=== PATIENT | male | born 2000 | race American Indian/Alaskan Native ===

== ENCOUNTER 2022-03-25 14:25 | Emergency (ER) | payer SELFPAY ==
[2022-03-25] MEDS: ACETAMINOPHEN 325 MG TAB PO ONE (15:08)
--- NOTE | 2022-03-25 15:46 | XRay Report ---
CHEST 2 VIEWS INDICATION / CLINICAL INFORMATION: Cough and fever. COMPARISON: 09/07/21. FINDINGS: SUPPORT DEVICES: None. HEART / MEDIASTINUM: The heart size and pulmonary vasculature are normal. LUNGS / PLEURA: No significant pulmonary or pleural abnormality. No pneumothorax. ADDITIONAL FINDINGS: No significant additional findings. IMPRESSION: No acute abnormality or significant change. No evidence of pneumonia. Signer Name: Jose Escalante MD Signed: 03/25/2022 3:42 PM Workstation Name: [id number]
[2022-03-25 16:15] LABS: Basophils % (Auto) 0.6 % (0.0-1.8); Eosinophils # (Auto) 0.1 K/mm3 (0.0-0.4); Hematocrit 47.3 % (35.5-45.6); Hemoglobin 15.6 gm/dl (11.8-15.2); Lymphocytes # (Auto) 1.1 K/mm3 (1.2-5.4); Lymphocytes % (Auto) 13.6 % (13.4-35.0); Mean Corpuscular HGB Conc 33 % (32-34); Mean Corpuscular Volume 83 fl (84-94); Monocytes # (Auto) 0.9 K/mm3 (0.0-0.8); Monocytes % (Auto) 11.5 % (0.0-7.3); Platelet Count 370 K/mm3 (140-440); Red Blood Count 5.68 M/mm3 (3.65-5.03); Red Cell Distribution Width 15.8 % (13.2-15.2)
[2022-03-25 16:30] LABS: Alanine Aminotransferase 39 units/L (7-56); Albumin 4.7 g/dL (3.9-5); BUN/Creatinine Ratio 6; Blood Urea Nitrogen 5 mg/dL (9-20); Calcium 10.1 mg/dL (8.4-10.2); Hemolysis Index 7
[2022-03-25 23:48] VITALS: BP 129/87
[2022-03-26] MEDS: PENICILLIN G BENZATHINE 1.2 MILLION UNIT/2 ML INJ IM ONE (00:24)
[2022-03-26] MEDS: dexAMETHasone 4 MG/ML VIAL IM ONE (00:24)
--- NOTE | 2022-03-26 00:37 | Emergency Department Report ---
ED ENT HPI - General Chief complaint: Fever Stated complaint: NECK PAIN/HEADACE FEVER Time Seen by Provider: 03/25/22 23:50 Source: patient Mode of arrival: Ambulatory Limitations: No Limitations - History of Present Illness Initial comments: 32-year-old -[place] male is emerged department complaining of a 3-day history of sore throat with odynophagia which has been waxing and waning and worsening fashion over the last 2 days.. Symptoms are worse with eating and drinking. Ports no nausea, no rashes, no abdominal pain, no chest pain MD complaint: sore throat Severity: mild Quality: dull Consistency: constant Improves with: none Worsens with: none Context- Dental: history of dental caries Associated Symptoms: pain with swallowing, sore throat. denies: tinnitus, discharge from ear, rhinorrhea - Related Data Previous Rx's Medication Instructions Recorded Last Taken Type Lidocaine Viscous 2% 5 ml MM Q3H PRN #120 udc 03/26/22 Unknown Rx Allergies Allergy/AdvReac Type Severity Reaction Status Date / Time No Known Allergies Allergy Unverified 03/25/22 14:54 ED Dental HPI - General Chief complaint: Fever Stated complaint: NECK PAIN/HEADACE FEVER Time Seen by Provider: 03/25/22 23:50 Source: patient Mode of arrival: Ambulatory Limitations: No Limitations - Related Data Previous Rx's Medication Instructions Recorded Last Taken Type Lidocaine Viscous 2% 5 ml MM Q3H PRN #120 udc 03/26/22 Unknown Rx Allergies Allergy/AdvReac Type Severity Reaction Status Date / Time No Known Allergies Allergy Unverified 03/25/22 14:54 ED Review of Systems ROS: Stated complaint: NECK PAIN/HEADACE FEVER Other details as noted in HPI ED Past Medical Hx - Past Medical History Previous Medical History?: Yes Hx Asthma: Yes - Surgical History Past Surgical History?: No - Medications Home Medications: Home Medications Medication Instructions Recorded Confirmed Last Taken Type Lidocaine Viscous 2% 5 ml MM Q3H PRN #120 udc 03/26/22 Unknown Rx ED Physical Exam - General Limitations: No Limitations ED Course Vital Signs 03/25/22 03/25/22 03/25/22 14:51 15:08 16:52 Temperature 102.0 F H 99.9 F H Pulse Rate 117 H 117 H Respiratory 18 20 18 Rate Blood Pressure 137/95 141/73 Blood Pressure [Left] O2 Sat by Pulse 100 98 Oximetry 03/25/22 23:45 Temperature 102.3 F H Pulse Rate 108 H Respiratory 14 Rate Blood Pressure Blood Pressure 129/87 [Left] O2 Sat by Pulse 97 Oximetry ED Medical Decision Making - Lab Data Result diagrams: 03/25/22 15:28 03/25/22 15:28 Critical care attestation.: If time is entered above; I have spent that time in minutes in the direct care of this critically ill patient, excluding procedure time. ED Disposition Clinical Impression: Pharyngitis Disposition: 01 HOME / SELF CARE / HOMELESS Is pt being admited?: No Does the pt Need Aspirin: No Condition: Stable Instructions: Pharyngitis, Strep Throat, Adult, [id number], Sore Throat, [id number] Prescriptions: Lidocaine Viscous 2% 5 ml MM Q3H PRN #120 udc PRN Reason: Pain, Moderate (4-6) Referrals: [facility] [Provider Group] - 3-5 Days
== END 2022-03-26 02:18 | disposition home or self-care (01) ==
LOC: EDBD → ED 14:25
DX: J02.9 Acute pharyngitis, unspecified (principal); J45.909 Unspecified asthma, uncomplicated
CPT/HCPCS: 36415; 71046; 80053; 85025; 96372; 99283; J0561; J1100; 90471